=== PATIENT | male | born 2000 | race Caucasian/White ===

== ENCOUNTER 2024-02-07 13:26 | Outpatient (AMB) | payer OTHER, SELFPAY ==
[2024-02-07 13:33] VITALS: BP 120/86; PULSE 101; O2SAT 96; BMI 25.6
--- NOTE | 2024-02-07 13:33 | MHC.PC.OV ---
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 did use peptobismol . epigastric pain 3years , constipated, with hemorrhoids and occ bleeding, , no fevers, no n no v, no coughing, , no bladder sys. , affecting work. . Patient works at [employer] Social History (Updated 02/07/24 @ 14:21 by Yojana Baez MD) Housing: House Alcohol intake: current Comment: 2x a month bottle Patient Tobacco Use Status: Never used Tobacco Years Smoked: does marijuana once a week service: No Current occupational status: employed Cognitive needs: No Hearing needs: No Vision needs: No Questionnaire PHQ-9 Over the last 2 weeks, how often have you been bothered by any of the following problems? 1. Little interest or pleasure in doing things: not at all 2. Feeling down, depressed, or hopeless: not at all 3. Trouble falling or staying asleep, or sleeping too much: not at all 4. Feeling tired or having little energy: not at all 5. Poor appetite or overeating: not at all 6. Feeling bad about yourself - or that you are a failure or have let yourself or your family down: not at all 7. Trouble concentrating on things, such as reading the newspaper or watching television: not at all 8. Moving or speaking so slowly that other people could have noticed. Or the opposite - being so fidgety or restless that you have been moving around a lot more than usual: not at all 9. Thoughts that you would be better off or of hurting yourself in some way: not at all Total score: 0 Depression Screening Interpretation: Negative Depression Screening Done: Yes Source: Developed by Drs. Siddhartha Brand, Nils Rashid and colleagues, with an educational ayush from [employer]. Thrive Questionnaire Date Thrive assessed: 02/07/24 I am a: Patient What is your living situation today?: I have a steady place to live Within the past 12 months, did the food you bought not last and you didn't have the money to get more?: Never true Within the past 12 months, did you worry whether your food would run out before you got money to buy more?: Never true THRIVE Score: 0 AUDIT C Alcohol Use Questionnaire (AUDIT-C) 1. How often do you have a drink containing alcohol?: Monthly or less 2. How many drinks containing alcohol do you have on a typical day when you are drinking?: 1 or 2 3. How often do you have six or more drinks on one occasion?: Never Total Score: 1 DANA-7 AMB Questionnaire DANA-7 Date DANA - 7 assessed: 02/07/24 Feeling nervous, anxious, or on edge: 0 = Not at all Not being able to stop or control worryin = Not at all Worrying too much about different things: 0 = Not at all Trouble relaxin = Not at all Being so restless that it is hard to sit still: 0 = Not at all Becoming easily annoyed or irritable: 0 = Not at all Feeling afraid as if something awful might happen: 0 = Not at all Total DANA-7 score (0-4 normal; 5-9 mild; 10-14 moderate; 15-21 severe): 0 Source: Developed by Drs. Siddhartha Brand, Nils Rashid and colleagues, with an educational ayush from [employer]. Physical exam (Primary Care) Vital Signs: Last Vital Signs Pulse 101 H 02/07/24 13:33 BP 120/86 02/07/24 13:33 Pulse Ox 96 02/07/24 13:33 Oxygen Delivery Method Room Air 02/07/24 13:33 BMI result Body Mass Index 25.6 Tobacco/Smoking Status: Tobacco use Status Tobacco use date assessed 02/07/24 02/07/24 13:40 Patient Tobacco Use Status Never used Tobacco 02/07/24 13:40 PHQ-9: PHQ-9 Score PHQ-9: Total score 0 02/07/24 13:40 Depression Screening Interpretation: Negative Thrive Assessment: Date of Thrive Assessment Date Thrive assessed 02/07/24 02/07/24 13:40 Const General: alert; No acute distress Eyes Conjunctivae: conjunctivae normal Resp Auscultation: clear to auscultation bilaterally Cardio Rate: regular rate Rhythm: regular rhythm GI Inspection: Yes normal to inspection Extrem General: Yes normal to inspection and No edema Assessment and Plan Assessment & Plan (1) GERD (gastroesophageal reflux disease): Code(s): K21.9 - Gastro-esophageal reflux disease without esophagitis Plan: Avoid the foods that causes that usually spicy foods, tomato products, juices, coffee, soda and foods that your sensitive to. After eating do not lie down, allow 3-4 hours before in lie down. And keep the head of bed above 30 degrees to avoid the acid from going up. (2) Constipation: Code(s): K59.00 - Constipation, unspecified Plan: Three rules for constipation 1. Diet need to have a high fiber diet less of meat 2. Increase oral fluids 3. Exercise (3) Hemorrhoid: Code(s): K64.9 - Unspecified hemorrhoids Plan: Discussed about avoiding constipation and if this continues to be a problem to call. Medications: New famotidine 20 mg PO BEDTIME 30 tabs 3RF K21.9 - Gastro-esophageal reflux disease without esophagitis sennosides-docusate sodium 8.6-50 mg (Senna-S) 2 tab-caps (2 x 8.6-50 mg) PO BEDTIME 60 tabs 3RF K59.00 - Constipation, unspecified Coding Level of Care Code New Pt Level 4 (72107) Diagnoses GERD (gastroesophageal reflux disease) K21.9 Constipation K59.00 Hemorrhoid K64.9
== END 2024-02-07 14:49 | disposition home or self-care (01) ==
PROVIDERS: PCP Internal Medicine; Visit Provider Internal Medicine
DX: K21.9 Gastro-esophageal reflux disease without esophagitis (principal); K59.00 Constipation, unspecified; K64.9 Unspecified hemorrhoids
CPT/HCPCS: 99204

== ENCOUNTER 2024-06-15 14:58 | Outpatient (AMB) | payer OTHER, SELFPAY ==
[2024-06-15 14:59] VITALS: BP 118/82; PULSE 92; O2SAT 98; BMI 26.0
--- NOTE | 2024-06-15 14:59 | A.OFFPC_ITS ---
Vital Signs 06/15/24 14:59 Height 5 ft 11.5 in Weight 189 lb 0.2 oz BMI 26.0 BP 118/82 Blood Pressure Location Lt brachial Position Sitting Pulse 92 Pulse Source Pulse Oximeter Pulse Oximetry (%) 98 Oxygen Delivery Method Room Air Intake Visit Reasons: Annual Exam Intake Note: Patient is here today for a physical. 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 Allergies No Known Allergies [No Known Allergies*] Allergy (Verified 06/15/24 15:00) Medication List - Last Reconciled 06/15/24 by Yojana Baez MD famotidine 20 mg PO BEDTIME sennosides-docusate sodium 8.6-50 mg (Senna-S) 2 tab-caps (2 x 8.6-50 mg) PO BEDTIME Tobacco use date assessed: 06/15/24 Dental Screening Dental Screen Date: 06/15/24 Did you have a dental visit in the last 12 months?: No Did you have a dental problem in the last 6 months where you did not have access to dental care?: No Was dental information given to patient?: No HPI Annual Exam HPI Details 23-year-old overweight male with GERD an d constipation last seen in 01/2024 patient is here for physical exam [facility] Social History (Updated 02/07/24 @ 14:21 by Yojana Baez MD) Housing: House Alcohol intake: current Comment: 2x a month bottle Patient Tobacco Use Status: Never used Tobacco Years Smoked: does marijuana once a week service: No Current occupational status: employed Cognitive needs: No Hearing needs: No Vision needs: No Questionnaire PHQ-9 Over the last 2 weeks, how often have you been bothered by any of the following problems? 1. Little interest or pleasure in doing things: not at all 2. Feeling down, depressed, or hopeless: not at all 3. Trouble falling or staying asleep, or sleeping too much: not at all 4. Feeling tired or having little energy: not at all 5. Poor appetite or overeating: not at all 6. Feeling bad about yourself - or that you are a failure or have let yourself or your family down: not at all 7. Trouble concentrating on things, such as reading the newspaper or watching television: not at all 8. Moving or speaking so slowly that other people could have noticed. Or the opp osite - being so fidgety or restless that you have been moving around a lot more than usual: not at all 9. Thoughts that you would be better off or of hurting yourself in some way: not at all Total score: 0 Depression Screening Interpretation: Negative Depression Screening Done: Yes Source: Developed by Drs. Siddhartha Brand, Ariane Mata, Nils Pearson and colleagues, with an educational ayush from [employer]. Thrive Questionnaire Date Thrive assessed: 02/07/24 I am a: Patient What is your living situation today?: I have a steady place to live Within the past 12 months, did the food you bought not last and you didn't have the money to get more?: Never true Within the past 12 months, did you worry whether your food would run out before you got money to buy more?: Never true THRIVE Score: 0 AUDIT C Alcohol Use Questionnaire (AUDIT-C) 1. How often do you have a drink containing alcohol?: Monthly or less 2. How many drinks containing alcohol do you have on a typical day when you are drinking?: 1 or 2 3. How often do you have six or more drinks on one occasion?: Never Total Score: 1 DANA-7 AMB Questionnaire DANA-7 Date DANA - 7 assessed: 06/15/24 (patient states i dont know did not want to answer. ) Feeling nervous, anxious, or on edge: 0 = Not at all Not being able to stop or control worryin = Not at all Worrying too much about different things: 0 = Not at all Trouble relaxin = Not at all Being so restless that it is hard to sit still: 0 = Not at all Becoming easily annoyed or irritable: 0 = Not at all Feeling afraid as if something awful might happen: 0 = Not at all Total DANA-7 score (0-4 normal; 5-9 mild; 10-14 moderate; 15-21 severe): 0 Source: Developed by Drs. Siddhartha Brand, Ariane Mata, Nils Pearson and colleagues, with an educational ayush from [employer]. Review of Systems Const Denies poor appetite and Denies weakness Eyes Denies no additional complaints ENT Reports Normal hearing present, Denies dizziness, Denies nasal congestion, Denies tinnitus and Denies sore throat Card Denies chest pain, Denies syncope, Denies rapid heart rate and Denies dyspnea Resp Denies cough and Denies dyspnea GI Denies change in stool character, Reports constipation, Denies diarrhea, Denies nausea and Denies vomiting Denies dysuria and Denies urinary frequency Neuro Reports Normal hearing present, Denies confusion, Denies dizziness, Denies syncope and Denies weakness Psych Denies confusion Physical exam (Primary Care) Vital Signs: Last Vital Signs Pulse 92 06/15/24 14:59 BP 118/82 06/15/24 14:59 Pulse Ox 98 06/15/24 14:59 Oxygen Delivery Method Room Air 06/15/24 14:59 BMI result Body Mass Index 26.0 Tobacco/Smoking Status: Tobacco use Status Tobacco use date assessed 06/15/24 06/15/24 15:11 Patient Tobacco Use Status Never used Tobacco 06/15/24 14:59 PHQ-9: PHQ-9 Score PHQ-9: Total score 0 06/15/24 15:32 Depression Screening Interpretation: Negative Thrive Assessment: Date of Thrive Assessment Date Thrive assessed 02/07/24 06/15/24 14:59 Const General: No confusion Orientation/consciousness: No confusion HENMT Head: Yes normocephalic Ears: external ears normal and TM's normal bilaterally Face and sinus: Yes normal facial exam Mouth: moist mucous membranes Throat: Yes tonsils normal Eyes Conjunctivae: conjunctivae normal Pupils: Equal, round and reactive pupils present and Pupil accommodation reflex normal Direct Ophthalmoscopy: normal light reflex Neck Neck: No lymphadenopathy Thyroid: Thyroid normal Chest Chest palpation & inspection: normal inspection of the chest Resp Effort & Inspection: normal respiratory effort and no audible wheezes Auscultation: clear to auscultation bilaterally, no crackles, no wheezes and l michael sounds not diminished Cardio Rate: regular rate Rhythm: regular rhythm Peripheral pulses: radial pulses present and dorsalis pedis present GI Other: declined Palpation (GI): no masses Auscultation: normal bowel sounds and normoactive bowel sounds Rectal Exam - Male: Yes deferred Male General Exam: Yes normal external exam Skin General skin exam: no rashes or lesions noted Rashes: no rashes Neuro General: No confusion Cranial nerves: Yes Equal, round and reactive pupils present and Yes Normal hearing present Cognition (Neuro): normal cognition Gait exam (Neuro): Normal gait present Motor exam (neuro): 5/5 motor strength present throughout Deep tendon reflexes (DTR's): Right brachioradialis reflex intensity grade: 2+, Left brachioradialis reflex intensity grade: 2+, Right patellar reflex intensity grade: 2+ and Left patellar reflex intensity grade: 2+ Extrem General: No edema Immunizations Boostrix Tdap 2.5 Lf unit-8 mcg-5 Lf/0.5 mL intramuscular syringe Performing Provider: Yojana Baez MD [facility] Administered by: LORENA Neal on 06/15/24 16:02 Dose Route Admin Location Dispensed Lot Number Expiration Date NDC 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 (2) GERD (gastroesophageal reflux disease): Code(s): K21.9 - Gastro-esophageal reflux disease without esophagitis Plan: Avoid the foods that causes that usually spicy foods, tomato products, juices, coffee, soda and foods that your sensitive to. After eating do not lie down, allow 3-4 hours before in lie down. And keep the head of bed above 30 degrees to avoid the acid from going up. (3) Constipation: Code(s): K59.00 - Constipation, unspecified Plan: Three rules for constipation 1. Diet need to have a high fiber diet less of meat 2. Increase oral fluids 3. Exercise Medications: Refilled famotidine 20 mg PO BEDTIME 30 tabs 5RF K21.9 - Gastro-esophageal reflux disease without esophagitis sennosides-docusate sodium 8.6-50 mg (Senna-S) 2 tab-caps (2 x 8.6-50 mg) PO BEDTIME 60 tabs 3RF K59.00 - Constipation, unspecified Coding Level of Care Code Est Pt Prev Care 18-39y(56306) Diagnoses Annual physical exam Z00.00 GERD (gastroesophageal reflux disease) K21.9 Constipation K59.00
== END 2024-06-15 15:54 | disposition home or self-care (01) ==
PROVIDERS: PCP Internal Medicine; Visit Provider Internal Medicine
DX: Z00.00 Encounter for general adult medical examination without abnormal findings (principal); K21.9 Gastro-esophageal reflux disease without esophagitis; K59.00 Constipation, unspecified; Z23 Encounter for immunization
CPT/HCPCS: 90471; 90715; 99395